=== PATIENT | female | born 1985 | race Caucasian/White ===

== ENCOUNTER → 2021-06-05 | Outpatient (CLI) | payer OTHER ==
--- NOTE | 2021-06-05 16:57 | RAD ---
INDICATION: Reason: BILAT WRIST LUMPS, HX OF GANGLION CYSTS / Spl. Instructions: / History: COMPARISON: None. FINDINGS: Focused ultrasound images obtained of the bilateral wrists. Right: 17 x 9 x 8 mm complex fluid collection is seen adjacent to the radial artery. Left: At the lateral aspect of the wrist as well as posterior aspect of the wrist there is a couple of smal l pockets of fluid measuring 19 x 11 x 5 and 11 x 12 x 6 mm. There is a thin band of hypoechoic mater ial seen extending between these 2 complex fluid pockets IMPRESSION: * Complex fluid collection is seen within the right wrist with 2 complex fluid collection seen at t he left wrist with hypoechoic band of tissue connecting them on the right. These could be secondary t o a complex ganglion cyst but other fluid collections could have this appearance as well including li quefied hematoma as well as infectious fluid collection. A complex cystic mass could also have this a ppearance but would be less likely in a patient of this age. Follow-up could be obtained to ensure th at these do not increase in size given the internal complexity. Electronically signed by: Mark Quintero MD (06/05/2021 4:55 PM) [id number]
== END | disposition home or self-care (01) ==
LOC: US 14:32
PROVIDERS: ATTEND General Practice
DX: M25.532 Pain in left wrist (principal); M25.531 Pain in right wrist
CPT/HCPCS: 76882

== ENCOUNTER 2021-07-20 10:07 | Emergency (ER) | payer OTHER ==
[~2021-07-20] VITALS: Ht 165.1 cm; Wt 68.0 kg
[2021-07-20 10:25] VITALS: BP 127/77
--- NOTE | 2021-07-20 10:50 | PHYS DOC ---
General Adult EDM: Chief Complaint: FLU SYMPTOM HPI: HPI: Patient is a 35-year-old female who presents to the emergency department with a 3-day history of a nonproductive cough, fever, sore throat, nausea and body aches. She denies any shortness of breath, vomiting, diarrhea, chest pain. She denies any sick exposures. (MCKENZIE FRANCO APRN) Review of Systems: Review of Systems: Constitutional: negative unless reported in HPI Eyes: negative unless reported in HPI HENT: negative unless reported in HPI Respiratory: negative unless reported in HPI Cardiovascular: negative unless reported in HPI GI: negative unless reported in HPI : negative unless reported in HPI Musculoskeletal: negative unless reported in HPI Integument: negative unless reported in HPI Neurologic: negative unless reported in HPI Endocrine: negative unless reported in HPI Lymphatic: negative unless reported in HPI Psychiatric: negative unless reported in HPI (MCKENZIE FRANCO APRN) Physical Exam: PE: Constitutional: Well developed, well nourished, no acute distress, non-toxic appearance. [] HENT: Normocephalic, atraumatic, bilateral external ears normal, oropharynx moist, no tonsillar enlargement or exudate, uvula midline, no trismus, no phonation changes, postnasal drainage, no oral exudates, nose normal. [] Eyes: PERRL, EOMI, conjunctiva normal, no discharge. [] Neck: Normal range of motion, no tenderness, supple, no stridor. [] Cardiovascular:Heart rate regular rhythm, no murmur [] Lungs & Thorax: Bilateral breath sounds clear to auscultation [] Abdomen: Bowel sounds normal, soft, no tenderness, no masses, no pulsatile masses. [] Skin: Warm, dry, no erythema, no rash. [] Back: Normal range of motion Extremities: No tenderness, no cyanosis, no clubbing, ROM intact, no edema. [] Neurologic: Alert and oriented X 3, normal motor function, normal sensory function, no focal deficits noted. [] Psychologic: Affect normal, judgement normal, mood normal. [] (MCKENZIE FRANCO APRN) Current Patient Data: Labs: Laboratory Tests Test 07/20/21 10:35 Influenza Type A (Rapid) Negative Influenza Type B (Rapid) Negative SARS-CoV-2 Antigen (Rapid) Positive (MCKENZIE FRANCO APRN) EKG: EKG: [] (MCKENZIE FRANCO APRN) Radiology/Procedures: Radiology/Procedures: [] (MCKENZIE FRANCO APRN) Heart Score: C/O Chest Pain: N/A Risk Factors: Risk Factors: DM, Current or recent (<one month) smoker, HTN, HLP, family history of CAD, obesity. Risk Scores: Score 0 - 3: 2.5% MACE over next 6 weeks - Discharge Home Score 4 - 6: 20.3% MACE over next 6 weeks - Admit for Clinical Observation Score 7 - 10: 72.7% MACE over next 6 weeks - Early Invasive Strategies (MCKENZIE FRANCO APRN) Course & Med Decision Making: Course & Med Decision Making Pertinent Labs and Imaging studies reviewed. (See chart for details) [] Patient presents to the emergency department with a 3-day history of cough, fever, sore throat, nausea, body aches. Patient is in no acute distress, physical exam is reassuring, vital signs stable. Patient be tested for COVID and influenza and patient was negative for influenza but positive for COVID-19. Patient educated on symptomatic treatment. I discussed with patient all findings and diagnostic testing as well as the need to follow-up with PCP for further evaluation and treatment or return to the ER if any new or worsening symptoms. Strict return precautions were also discussed at length. Patient voiced understanding and agreement with the plan. Patient is hemodynamically stable at the time of disposition. (MCKENZIE FRANCO APRN) Dragon Disclaimer: Dragon Disclaimer: This electronic medical record was generated, in whole or in part, using a voice recognition dictation system. (MCKENZIE FRANCO APRN) Attending Co-Sign The patient was seen and interviewed as well as examined at the bedside. The chart was reviewed. The case was discussed. Agree with the plan of care. (WILLIAM ISBELL DO) Departure Departure: Impression: Primary Impression: COVID-19 Disposition: HOME / SELF CARE / HOMELESS Condition: GOOD Referrals: ALEXANDER FERGUSON MD (PCP) Patient Instructions: Cough, Adult Additional Instructions: You are seen in the emergency department today for cough, fever, sore throat, nausea and body aches. Your rapid influenza test was negative. Your rapid COVID test was positive. Please self isolate per CDC guidelines. Please continue to take Tylenol and ibuprofen for any pain or fevers. For your sore throat you can use warm salt water gargles. For your cough you can take the medication that is prescribed to you. Follow-up with your primary care provider tomorrow regarding your ER visit. Return to the emergency department if you develop shortness of breath, high fevers refractory to treatment, intractable nausea or vomiting, lethargy or any new or worsening concerns. You have been tested for or diagnosed with COVID-19. It is an infection caused by a new type of coronavirus. COVID-19 will cause cold-like or mild flu symptoms in most. It can cause more severe symptoms like problems breathing in some. There is no treatment for COVID-19. The body will clear the infection over time. Self-care will help to ease discomfort. Steps to Take: Self-Care Rest as needed. Healthy habits may help you feel better. Steps include: Choose healthy foods including fruits and vegetables. Drink water throughout the day. Get plenty of sleep each night. If you smoke, try to quit. It may ease breathing. Avoid alcohol. Keep Others Healthy The virus can spread to others. Droplets are released every time you sneeze or cough. The droplets can get into the mouth, nose, or eyes of people near you and lead to infection. To lower the chances of spreading COVID-19 to others: Stay at home until your doctor has said it is safe to leave. If you tested positive this will mean staying isolated until both of the following are true: At least 7 days have passed since the start of illness. You are free of fever for at least 72 hours without the use of medicine. During this time: - Avoid public areas, events, or transportation. Do not return to work or school until your doctor has said it is safe to do so. - Call ahead if you need to go to a medical center. Let them know you may have COVID-19. It will help them guide you where to go. They may also ask you to wear a facemask when you come to the office. - If you call for emergency medical services, let them know you may have COVID- 19. While at home: - Try to avoid close contact with others. Stay about 6 feet away. - If possible, spend most of your time in a separate room from others. - Use a face mask if you will be in close contact with others such as sharing a room or vehicle. - Have someone wipe down common surfaces in the home. Use household crm coordinator every day on areas like doorknobs, counters, or sinks. - Cough or sneeze into a tissue. Throw the tissue away right after use. If a tissue is not available, cough or sneeze into your elbow. - Wash your hands often. Wash them after sneezing or coughing. Use soap and water and wash for at least 20 seconds. Alcohol based hand cleaner operator can be used if soap and water is not available. - Do not prepare food for others. Avoid sharing personal items like forks, spoons, or toothbrushes. - Avoid close contact with pets while you are sick. There is no evidence of the virus passing to pets. This is a safety step until more is known about this virus. Isolation can be frustrating. Social interaction can help. Keep in touch with friends and family through phone and tech options. You can still interact with others in your home, just keep a safe distance of about 6 feet. Follow-up: Your doctors office will check in with you to see if there are any changes in your health. You may be asked to keep track of symptoms to share with them. They will also let you know when you are clear to be in public again. Problems to Look Out For: Contact your doctor if your recovery is not going as you expect. Get emergency care if you have problems such as: - Trouble breathing - Nonstop chest pain or pressure - Changes in awareness, confusion, or problems waking - Lips or face have bluish color - Worsening of symptoms If you think you have an emergency, call for emergency medical services right away. As taken from [facility] Benzonatate (BENZONATATE) 100 Mg Capsule 1 CAP PO TID for cough for 7 Days, #21 CAP 0 Refills Prov: MCKENZIE FRANCO [employer]IAN 07/20/21 MCKENZIE FRANCO APRN Jul 20, 2021 10:49 WILLIAM ISBELL DO Jul 21, 2021 09:45
[2021-07-20 11:10] LABS: INFLUENZA A PATIENT NEGATIVE (NEGATIVE); INFLUENZA B PATIENT NEGATIVE (NEGATIVE)
[2021-07-20] MEDS ORDERED: BENZ-8 PO (11:23)
== END 2021-07-20 11:40 | disposition home or self-care (01) ==
LOC: ER 10:07
DX: U07.1 COVID-19 (principal)
CPT/HCPCS: 87428; 99283